=== PATIENT | female | born 1990 | race African-American/Black ===

== ENCOUNTER 2017-08-06 13:16 | Emergency (ER) | payer OTHER ==
[~2017-08-06] VITALS: Ht 162.6 cm; Wt 122.5 kg
[~2017-08-06 13:16] MED LIST: AMOXICILLIN 50500 M1 PO; FLAGYL500 MG PO; FLEXERIL PO; HYDROXYZINE HCL50 MG PO; IBUPROFEN 600600 M1 PO; IBUPROFEN 800800 M1 PO; NOHOMEMEDICATIONS; NORCO 5-325 TA1 EACH PO; PRENATAL; TERAZOL 320 GM VG; TRINATE TABLET1 TAB PO; ZOFRAN ODT4 MG PO
[2017-08-06] MEDS ORDERED: COMPAZINE10 MG PO (14:32)
[2017-08-06 14:47] VITALS: BP 160/98
== END 2017-08-06 14:49 | disposition home or self-care (01) ==
LOC: ER 13:16
DX: R51 Headache (principal)